=== PATIENT | female | born 1935 | race Two or more races ===

== ENCOUNTER 2017-07-27 15:05 | Inpatient (IN) | payer MEDICARE, OTHER ==
[2017-07-27] VITALS (24 sets, daily range): BP systolic 111–175; BP diastolic 56–95; PULSE 40–72; RESP 16–20; Ht 152.4 cm; Wt 71.8 kg
[~2017-07-27] VITALS: Ht 152.4 cm; Wt 71.8 kg
[2017-07-27] MEDS ORDERED: ZOLP5TAB PO (16:59)
[2017-07-27] MEDS ORDERED: CLOP75TA27 PO (16:59)
[2017-07-27] MEDS ORDERED: AMLO2.5T78 PO (16:59)
[2017-07-27] MEDS ORDERED: ATOR20TA38 PO (16:59)
[2017-07-27] MEDS ORDERED: VALS160T26 PO (16:59)
[2017-07-27] MEDS ORDERED: ENOX30DI8 SQ (16:59)
[2017-07-27] MEDS ORDERED: ACET-2047 PO (16:59)
[2017-07-27] MEDS ORDERED: ASPI81TA3 PO (16:59)
[2017-07-27] MEDS ORDERED: PANT40TA4 PO (16:59)
[2017-07-27] MEDS ORDERED: GABA300S PO (16:59)
[2017-07-27] MEDS ORDERED: SS SC (16:59)
[2017-07-27] MEDS ORDERED: CARV25TA79 PO (16:59)
[2017-07-27] MEDS ORDERED: HYDR-3672 PO (16:59)
[2017-07-27] MEDS ORDERED: VERAPAMIL 5 MG INJ ONE (19:04)
[2017-07-27] MEDS ORDERED: HEPARIN 1000 UNITS/ML 10 ML INJ ONE ×2 (19:04→19:05)
[2017-07-27] MEDS ORDERED: LIDOCAINE 1% (MDV) 20 ML INJ ONE (19:04)
[2017-07-27] MEDS ORDERED: SOD CHLORIDE 0.9% 1,500 ML ONE (19:05)
[2017-07-27] MEDS ORDERED: FENTAnyl 50 MCG/ML VIAL ONE (19:15)
[2017-07-27] MEDS ORDERED: MIDAZOLAM 1 MG/ML 2 ML INJ ONE (19:15)
[2017-07-27] MEDS ORDERED: IOHEXOL 350MG/ML 50 ML BTL ONE (20:20)
--- NOTE | 2017-07-27 20:42 | OPR ---
Date/Time of Note Date/Time of Note DATE: 07/27/17 TIME: 20:33 Operative Report Preoperative Diagnosis unstable angina Postoperative Diagnosis unstable angina Surgeon see signature line Drawing Box Tender none Anesthesia Type: moderate sedation Estimated Blood Loss: minimal Transfusion none Specimen none Grafts/Implants none Complications none Procedure Description Procedure Date: 07/27/2017 Propagation Worker/surgeon:Abhijeet Greer MD. Procedures Performed: 1)Left heart catheterization with selective left and right coronary angiography. Pre-operative Diagnosis:unstable angina Post-operative Diagnosis:unstable angina with three vessel CAD Indications:82 yo F with a h/o CAD, HTN, DM, who presented with chest pain and was found to have hypertensive emergency with SBP 200. Since she had already had 2 recent stress tests with differing reads (normal and abnormal), a cardiac CT was obtained which showed prox RCA disease and possible LAD and Cx disease. Cath was planned for evaluation Description of Procedure: After informed consent, the patient was brought to the cardiac catheterization lab. The procedure site was prepped and draped in usual manner. The patient was premedicated with versed 0.5 mg. 2mL lidocaine was injected into the right wrist. Next using the posterior wall technique, the 6/5 palestinian sheath was inserted into the right radial artery. Next using the JL3.0 and JR4, selective angiography of the left and right coronary arteries were obtained. The JR entered the LV and so hemodynamics were obtained. Left ventricle angiography was not obtained. Next all equipment was removed and hemostasis was obtained by TR band. Findings: Anatomy/Hemodynamics: Left main:large, ostial 20% LAD: very tortuous vessel with ostial 60%, mid 70-80% Diagonal:luminal irregularities Circumflex: very tortuous vessel with ostial 70-80% in some views though difficult due to vessel overlap, mid 40-50% Obtuse marginal:luminal irregularities RCA: proximal subtotal with some antegrade flow, some bridging collaterals, and left-right collaterals LV angiography:not done LV-Ao:no gradient LVEDP:20 mmHG Estimated blood loss<10 mL. Specimen: none Grafts/implants: none Complications: none Assessment: Unstable angina: three vessel coronary disease. 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
--- NOTE | 2017-07-27 20:42 | OPR ---
Date/Time of Note Date/Time of Note DATE: 07/27/17 TIME: 20:33 Operative Report Preoperative Diagnosis unstable angina Postoperative Diagnosis unstable angina Surgeon see signature line Beck Tender none Anesthesia Type: moderate sedation Estimated Blood Loss: minimal Transfusion none Specimen none Grafts/Implants none Complications none Procedure Description Procedure Date: 07/27/2017 Senior Java Developer/surgeon:Abhijeet Greer MD. Procedures Performed: 1)Left heart catheterization with selective left and right coronary angiography. Pre-operative Diagnosis:unstable angina Post-operative Diagnosis:unstable angina with three vessel CAD Indications:82 yo F with a h/o CAD, HTN, DM, who presented with chest pain and was found to have hypertensive emergency with SBP 200. Since she had already had 2 recent stress tests with differing reads (normal and abnormal), a cardiac CT was obtained which showed prox RCA disease and possible LAD and Cx disease. Cath was planned for evaluation Description of Procedure: After informed consent, the patient was brought to the cardiac catheterization lab. The procedure site was prepped and draped in usual manner. The patient was premedicated with versed 0.5 mg. 2mL lidocaine was injected into the right wrist. Next using the posterior wall technique, the 6/5 qatari sheath was inserted into the right radial artery. Next using the JL3.0 and JR4, selective angiography of the left and right coronary arteries were obtained. The JR entered the LV and so hemodynamics were obtained. Left ventricle angiography was not obtained. Next all equipment was removed and hemostasis was obtained by TR band. Findings: Anatomy/Hemodynamics: Left main:large, ostial 20% LAD: very tortuous vessel with ostial 60%, mid 70-80% Diagonal:luminal irregularities Circumflex: very tortuous vessel with ostial 70-80% in some views though difficult due to vessel overlap, mid 40-50% Obtuse marginal:luminal irregularities RCA: proximal subtotal with some antegrade flow, some bridging collaterals, and left-right collaterals LV angiography:not done LV-Ao:no gradient LVEDP:20 mmHG Estimated blood loss<10 mL. Specimen: none Grafts/implants: none Complications: none Assessment: Unstable angina: three vessel coronary disease. 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
--- NOTE | 2017-07-27 20:42 | OPR ---
Date/Time of Note Date/Time of Note DATE: 07/27/17 TIME: 20:33 Operative Report Preoperative Diagnosis unstable angina Postoperative Diagnosis unstable angina Surgeon see signature line Skein Winder none Anesthesia Type: moderate sedation Estimated Blood Loss: minimal Transfusion none Specimen none Grafts/Implants none Complications none Procedure Description Procedure Date: 07/27/2017 Metal Expediter/surgeon:Abhijeet Greer MD. Procedures Performed: 1)Left heart catheterization with selective left and right coronary angiography. Pre-operative Diagnosis:unstable angina Post-operative Diagnosis:unstable angina with three vessel CAD Indications:82 yo F with a h/o CAD, HTN, DM, who presented with chest pain and was found to have hypertensive emergency with SBP 200. Since she had already had 2 recent stress tests with differing reads (normal and abnormal), a cardiac CT was obtained which showed prox RCA disease and possible LAD and Cx disease. Cath was planned for evaluation Description of Procedure: After informed consent, the patient was brought to the cardiac catheterization lab. The procedure site was prepped and draped in usual manner. The patient was premedicated with versed 0.5 mg. 2mL lidocaine was injected into the right wrist. Next using the posterior wall technique, the 6/5 algerian sheath was inserted into the right radial artery. Next using the JL3.0 and JR4, selective angiography of the left and right coronary arteries were obtained. The JR entered the LV and so hemodynamics were obtained. Left ventricle angiography was not obtained. Next all equipment was removed and hemostasis was obtained by TR band. Findings: Anatomy/Hemodynamics: Left main:large, ostial 20% LAD: very tortuous vessel with ostial 60%, mid 70-80% Diagonal:luminal irregularities Circumflex: very tortuous vessel with ostial 70-80% in some views though difficult due to vessel overlap, mid 40-50% Obtuse marginal:luminal irregularities RCA: proximal subtotal with some antegrade flow, some bridging collaterals, and left-right collaterals LV angiography:not done LV-Ao:no gradient LVEDP:20 mmHG Estimated blood loss<10 mL. Specimen: none Grafts/implants: none Complications: none Assessment: Unstable angina: three vessel coronary disease. 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
--- NOTE | 2017-07-27 20:44 | CONS ---
Date/Time of Note Date/Time of Note DATE: 07/27/17 TIME: 20:42 Assessment/Plan Assessment/Plan Chief Complaint/Hosp Course Unstable angina: three vessel coronary disease. 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, CABG is the best option if she is a candidate DM HTN HL -admit to tele for CABG eval -if not a surgical candidate, can discuss high risk PCI -ASA, lipitor -metoprolol 25mg BID -imdur 30mg Problems: Consultation Date/Type/Reason Admit Date/Time Initial Consult Date 24 HR Interval Summary Free Text/Dictation S/p cath, See op note Exam/Review of Systems Vital Signs Vitals Vital Signs Date Time Temp Pulse Resp B/P Pulse Ox O2 Delivery O2 Flow Rate FiO2 07/27/17 15:22 99.0 66 16 166/78 97 Room Air Exam Constitutional: alert, oriented Psych: nl mood/affect, no complaints Head: atraumatic, normocephalic Eyes: nl conjunctiva Neck: supple, No jvd Respiratory: clear to auscultation, No crackles/rales Cardiovascular: regular rate and rhythm, systolic murmur (2/6 DENIS), No edema Gastrointestinal: non-tender, soft Neurological: nl mental status, nl speech Skin: No rash or lesions AKIKO HOSKINS Jul 27, 2017 20:44
--- NOTE | 2017-07-27 20:44 | CONS ---
Date/Time of Note Date/Time of Note DATE: 07/27/17 TIME: 20:42 Assessment/Plan Assessment/Plan Chief Complaint/Hosp Course Unstable angina: three vessel coronary disease. 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, CABG is the best option if she is a candidate DM HTN HL -admit to tele for CABG eval -if not a surgical candidate, can discuss high risk PCI -ASA, lipitor -metoprolol 25mg BID -imdur 30mg Problems: Consultation Date/Type/Reason Admit Date/Time Initial Consult Date 24 HR Interval Summary Free Text/Dictation S/p cath, See op note Exam/Review of Systems Vital Signs Vitals Vital Signs Date Time Temp Pulse Resp B/P Pulse Ox O2 Delivery O2 Flow Rate FiO2 07/27/17 15:22 99.0 66 16 166/78 97 Room Air Exam Constitutional: alert, oriented Psych: nl mood/affect, no complaints Head: atraumatic, normocephalic Eyes: nl conjunctiva Neck: supple, No jvd Respiratory: clear to auscultation, No crackles/rales Cardiovascular: regular rate and rhythm, systolic murmur (2/6 DENIS), No edema Gastrointestinal: non-tender, soft Neurological: nl mental status, nl speech Skin: No rash or lesions AKIKO HOSKINS Jul 27, 2017 20:44
--- NOTE | 2017-07-27 20:44 | CONS ---
Date/Time of Note Date/Time of Note DATE: 07/27/17 TIME: 20:42 Assessment/Plan Assessment/Plan Chief Complaint/Hosp Course Unstable angina: three vessel coronary disease. 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, CABG is the best option if she is a candidate DM HTN HL -admit to tele for CABG eval -if not a surgical candidate, can discuss high risk PCI -ASA, lipitor -metoprolol 25mg BID -imdur 30mg Problems: Consultation Date/Type/Reason Admit Date/Time Initial Consult Date 24 HR Interval Summary Free Text/Dictation S/p cath, See op note Exam/Review of Systems Vital Signs Vitals Vital Signs Date Time Temp Pulse Resp B/P Pulse Ox O2 Delivery O2 Flow Rate FiO2 07/27/17 15:22 99.0 66 16 166/78 97 Room Air Exam Constitutional: alert, oriented Psych: nl mood/affect, no complaints Head: atraumatic, normocephalic Eyes: nl conjunctiva Neck: supple, No jvd Respiratory: clear to auscultation, No crackles/rales Cardiovascular: regular rate and rhythm, systolic murmur (2/6 DENIS), No edema Gastrointestinal: non-tender, soft Neurological: nl mental status, nl speech Skin: No rash or lesions AKIKO HOSKINS Jul 27, 2017 20:44
[2017-07-27] MEDS ORDERED: HOLD all METFORMIN and METFORMIN CONTAINING medications for 48 hours post procedure. Chec XX SCH (21:00)
[2017-07-27] MEDS: hydrALAzine 20 MG INJ IV PRN (21:40)
[2017-07-27] MEDS: ATORVASTATIN 40 MG TAB PO SCH (23:27)
[2017-07-27] MEDS: METOPROLOL 25 MG TAB PO SCH (23:28)
[2017-07-28] VITALS (9 sets, daily range): BP systolic 121–152; BP diastolic 59–68; PULSE 58–76; RESP 19–21
[2017-07-28] MEDS ORDERED: ZOLPIDEM 5 MG TAB PO PRN (00:30)
--- NOTE | 2017-07-28 06:25 | PN ---
Date/Time of Note Date/Time of Note DATE: 07/28/17 TIME: 06:24 Assessment/Plan Lines/Catheters IV Catheter Type (from Nrs): Saline Lock Kelsey in Place (from Nrs): No Assessment/Plan Assessment/Plan 3V CAD, cath reviewed and has good targets for CABG. Will see and discuss with patient around noon. Exam/Review of Systems Vital Signs Vitals Vital Signs Date Time Temp Pulse Resp B/P Pulse Ox O2 Delivery O2 Flow Rate FiO2 07/28/17 04:02 98.0 67 21 121/59 95 07/27/17 22:48 Room Air Intake and Output 07/27/17 07/27/17 07/28/17 15:00 23:00 07:00 Intake Total 120 ml Balance 120 ml PO WILSON MD Jul 28, 2017 06:25
[2017-07-28] MEDS ORDERED: GLUCOSE GEL 15 GRAM TUBE BUCCAL PRN (08:30)
[2017-07-28] MEDS ORDERED: DEXTROSE 50% 50 ML SYRINGE IV PRN ×2 (08:30)
[2017-07-28] MEDS ORDERED: ACETAMINOPHEN 325 MG TAB PO PRN (08:30)
[2017-07-28] MEDS ORDERED: GLUCOSE GEL 15 GRAM TUBE PO PRN ×2 (08:30)
[2017-07-28] MEDS ORDERED: GLUCAGON 1 MG INJ IM PRN (08:30)
--- NOTE | 2017-07-28 08:50 | HP ---
DATE OF ADMISSION: 07/27/2017 CHIEF COMPLAINT: Coronary artery disease. HISTORY OF PRESENT ILLNESS: This is an 82-year-old female with a past medical history of hypertensi on, history of coronary artery disease, diabetes who presented to an outside hospital with hypertens aneesh emergency with systolic pressures greater than 200. The patient at the outside facility, was no christopher to have chest pain, shortness of breath. She was evaluated by cardiology. The patient was medi mami managed and stabilized and transferred to [facility] to undergo cardiac cath eterization. The left cardiac catheterization was performed and patient was found to have multivess el disease. No intervention occurred. The patient was admitted to telemetry for possible CABG eval uation. Upon my evaluation of the patient at this time, she is currently stable. Denies any hemoptysis, hem etemesis, hematochezia. No other acute events noted. PAST MEDICAL HISTORY: History of hypertension, diabetes, coronary artery disease. PAST SURGICAL HISTORY: None per patient. ALLERGIES: NO KNOWN DRUG ALLERGIES. SOCIAL HISTORY: Does not drink, smoke or do drugs. FAMILY HISTORY: Noncontributory. MEDICATIONS: The patient's medications have been reviewed and reconciled. REVIEW OF SYSTEMS: A 14-point review of systems was conducted. Pertinent positives listed in HPI, otherwise negative. PHYSICAL EXAMINATION: VITAL SIGNS: Blood pressure is 149/67, respirations 19, pulse 64, temperature 98.2. HEENT: Head is normocephalic. Pupils are reactive to light. NECK: Supple. HEART: Regular rate. LUNGS: Show diminished breath sounds at the base. ABDOMEN: Soft, nontender to palpation without rebound or guarding. EXTREMITIES: Negative for clubbing, cyanosis, no edema. DERMATOLOGIC: No rashes. MUSCULOSKELETAL: No joint effusions. NEUROLOGIC: No focal deficits. LABORATORY DATA: Patient's laboratory data is currently pending. ASSESSMENT AND PLAN: This is an 82-year-old female who presents with: 1. Coronary artery disease. The patient is status post cardiac catheterization with multivessel di sease. Plan is for the patient to be evaluated by cardiology and CT surgery for possible coronary a rtery bypass graft. We will continue medical management with aspirin and statin therapy. Follow up with Cardiology for recommendations. 2. Diabetes. Continue Accu-Cheks, insulin sliding scale. 3. Hypertension. Continue current blood pressure regimen. 4. Anemia. Monitor hemoglobin and hematocrit levels. 5. Gastrointestinal and deep venous thrombosis prophylaxis. We will continue PPI, sequential leg s queezers. Please note I spent up to 25 minutes face to face time with the patient and patient is FULL CODE. Dictated By: NATE LOVE/CARLITOS Conf#: [id number] DID#: [id number]
[2017-07-28] MEDS ORDERED: ISOSORBIDE MONONITRATE(SR)30 MG TAB PO SCH (09:00)
[2017-07-28] MEDS ORDERED: LISINOPRIL 10 MG TAB PO SCH (09:00)
[2017-07-28] MEDS ORDERED: PANTOPRAZOLE (EC) 40 MG TAB PO SCH (09:00)
[2017-07-28] MEDS ORDERED: ASPIRIN 81 MG TAB PO SCH (09:00)
[2017-07-28] MEDS ORDERED: ENOXAPARIN 30 MG/0.3 ML SYG SC SCH (09:00)
[2017-07-28] MEDS: METOPROLOL 25 MG TAB PO SCH ×2 (09:18→20:02)
[2017-07-28] MEDS: INSULIN ASPART [NOVOLOG] 3 ML PEN SC SCH ×3 (11:50→21:00)
--- NOTE | 2017-07-28 14:54 | CONS ---
Date/Time of Note Date/Time of Note DATE: 07/28/17 TIME: 14:47 Assessment/Plan Assessment/Plan Additional Assessment/Plan 82 year old female with hypertensive crisis and stable angina who has 3V CAD. I discussed options of medical management, high risk PCI vs CABG. Her STS risk of mortality is 2.2 and morbidity is 15%. At this time they wish to go home and think about there options. She can follow up with me if they decide to proceed with surgery. Thank you for the referral. Consultation Date/Type/Reason Admit Date/Time Date of Consultation: Jul 28, 2017 Type of Consultation: CT SURGER Reason for Consultation EVALUATE FOR CABG Referring Provider: AKIKO HOSKINS Hx of Present Illness 82 year old female admitted with hypertensive crisis and transferred here for angiogram which showed 3V CAD. She denies chest pain or SOB. We are asked to evaluate for CABG. Constitutional: No chills, No diaphoresis, No disoriented, No febrile, No improved, No no complaints, No other, No poor po, No requiring IVF, No requiring O2 Eyes: No discharge, No no complaints, No other, No pain, No redness, No visual change ENT: No bleeding, No congestion, No discharge, No dysphagia, No no complaints, No other, No pain, No sore throat Respiratory: No cough, No no complaints, No other, No pain, No pleuritic pain, No shortness of breath, No sputum, No wheezing Cardiovascular: No chest pain, No edema, No lightheadedness, No no complaints, No orthopenea, No other, No palpitations, No paroxysmal nocturnal dyspnea Gastrointestinal: No blood, No constipation, No decreased appetite, No diarrhea , No flatus, No nausea, No no complaints, No other, No pain, No passing stool, No vomiting Genitourinary: No bleeding, No discharge, No dysuria, No flank pain, No hematuria, No no complaints, No other Musculoskeletal: No back pain, No bone/joint pain, No neck pain, No no complaints, No other, No restricted range of motion, No swelling Skin: No bruising, No erythema, No laceration, No no complaints, No other, No pruritis, No rash, No skin lesions Neurologic: No confusion, No dizziness, No focal-weakness, No headache, No no complaints, No other, No seizure, No syncope Endocrine: No dry skin, No no complaints, No other, No polydypsia, No polyuria , No temp intolerance Lymphatic: No adenopathy, No lymphadema, No no complaints, No other, No tender nodes Psychological: nl mood/affect, no complaints, No anxiety, No confusion, No depression, No other, No suicidal Immunologic: No immunodeficiency, No no complaints, No other, No pruritis, No rhinitis, No urticaria Past Medical History Medical History: coronary artery disease, diabetes, high cholesterol, hypertension Past Surgical History Past Surgical Hx: no surgical history Family History Significant Family History: no pertinent family hx Social History Alcohol Use: none Smoking Status: Never smoker Drug Use: none Exam/Review of Systems Vital Signs Vitals Vital Signs Date Time Temp Pulse Resp B/P Pulse Ox O2 Delivery O2 Flow Rate FiO2 07/28/17 12:07 61 07/28/17 11:32 98.2 19 129/61 98 07/27/17 22:48 Room Air Intake and Output 07/27/17 07/27/17 07/28/17 15:00 23:00 07:00 Intake Total 120 ml 150 ml Balance 120 ml 150 ml Exam Constitutional: No alert, No distress, No frail, No non-verbal, No obese, No oriented, No other, No well developed Psych: No anxiety, No confusion, No depression, No nl mood/affect, No no complaints, No other, No suicidal Head: No atraumatic, No hematomas, No lacerations, No normocephalic, No other Eyes: No EOMI, No PERRL, No fundi, disc, No icteric, No nl conjunctiva, No nl lids, No nl sclera, No other ENMT: No intubated, No mucosa pink and moist, No nl external ears & nose, No nl lips & teeth, No nl nasal mucosa & septum, No other, No tympanic membranes Neck: No bruits, No jvd, No masses, No non-tender, No nuchal rigidity, No other , No supple, No thyromegaly Respiratory: No clear to auscultation, No congested cough, No crackles/rales, No diminished breath sounds, No intercostal retraction, No labored breathing, No normal air movement, No other, No respirations, No tactile fremitus, No wheezing Cardiovascular: No S3, No S4, No bruits, No diastolic murmur, No edema, No gallop, No irregular rhythm, No jugular venous distention (JVD), No murmurs/ extra sounds, No nl pulses, No other, No regular rate and rhythm, No rub, No systolic murmur Gastrointestinal: No ascites, No bowel sounds, No distended, No firm, No hepatomegaly, No mass, No nl liver, spleen, No non-tender, No other, No rebound or guarding, No soft, No splenomegaly, No surgical scars, No tender Genitourinary - Female: No CMT, No CVA tenderness, No nl adnexae, No nl external genitalia, No other, No uterus Musculoskeletal: No joint tenderness, No muscle tone, No muscle weakness, No nl extremities to inspection, No nl gait and stance, No other, No range of motion, No spine non-tender, No swelling Extremities: No calf tenderness, No clubbing, No cyanosis, No edema, No normal pulses, No other, No palpable cord, No pitting pedal edema, No tenderness Neurological: No FREIGHT FLAGMAN II-XII intact, No DTR's symmetric, No confused, No focal weakness, No lethargic, No nl mental status, No nl speech, No nl strength, No numbness, No other, No reflexes, No unresponsive Skin: No diaphoresis, No ecchymosis, No laceration, No nl turgor, No other, No puncture, No rash or lesions Lymph: No enlarged, No nl lymph nodes, No nontender, No other Results Result Diagram: 07/28/1715 07/28/17 0815 Results 24 hrs Laboratory Tests Test 07/27/17 20:35 07/28/17 08:15 07/28/17 13:15 Bedside Glucose 104 White Blood Count 6.2 Red Blood Count 4.55 Hemoglobin 12.9 Hematocrit 40.1 Mean Corpuscular Volume 88.1 Mean Corpuscular Hemoglobin 28.4 L Mean Corpuscular Hemoglobin Concent 32.2 Red Cell Distribution Width 12.9 Platelet Count 237 Mean Platelet Volume 10.5 H Neutrophils % 75.8 Lymphocytes % 13.7 L Monocytes % 8.1 Eosinophils % 1.6 Basophils % 0.3 Nucleated Red Blood Cells % 0.0 Neutrophils # 4.7 Lymphocytes # 0.9 Monocytes # 0.5 Eosinophils # 0.1 Basophils # 0.0 Nucleated Red Blood Cells # 0.0 Sodium Level 143 Potassium Level 3.9 Chloride Level 107 Carbon Dioxide Level 26 Anion Gap 14 Blood Urea Nitrogen 21 H Creatinine 0.93 Glucose Level 153 Calcium Level 8.8 Total Bilirubin 0.2 Direct Bilirubin 0.00 Indirect Bilirubin 0.2 Aspartate Amino Transf (AST/SGOT) 33 Alanine Aminotransferase (ALT/SGPT) 52 Alkaline Phosphatase 73 Total Protein 6.5 Albumin 3.6 Globulin 2.90 Albumin/Globulin Ratio 1.24 Urine Color YELLOW Urine Clarity SLIGHTLY CLOUDY A Urine pH 5.0 Urine Specific [place] 1.043 H Urine Ketones NEGATIVE Urine Nitrite NEGATIVE Urine Bilirubin NEGATIVE Urine Urobilinogen NEGATIVE Urine Leukocyte Esterase 3+ H Urine Microscopic RBC 11 H Urine Microscopic WBC 16 H Urine Squamous Epithelial Cells FEW Urine Bacteria FEW A Urine Mucus MODERATE Urine Hemoglobin NEGATIVE Urine Random Creatinine 147.23 Urine Random Sodium 49 Urine Glucose NEGATIVE Urine Total Protein 6.0 Medications Medications Current Medications Miscellaneous Information (* Miscellaneous Pharmacy Order) HOLD all METFORMIN ... ONCE XX ; Start 07/27/17 at 21:00; Stop 07/29/17 at 20:59 Aspirin (Aspirin) 81 mg DAILY PO Last administered on 07/28/17 09:21; Admin Dose 81 MG; Start 07/28/17 at 09:00 Atorvastatin Calcium (Lipitor) 40 mg HS PO Last administered on 07/27/17 23:27 ; Admin Dose 40 MG; Start 07/27/17 at 21:00 Metoprolol Tartrate (Lopressor) 25 mg BID PO Last administered on 07/28/17 09: 18; Admin Dose 25 MG; Start 07/27/17 at 21:00 Isosorbide Mononitrate (Imdur) 30 mg DAILY PO Last administered on 07/28/17 09 :19; Admin Dose 30 MG; Start 07/28/17 at 09:00 Lisinopril (Zestril) 10 mg DAILY PO Last administered on 07/28/17 09:19; Admin Dose 10 MG; Start 07/28/17 at 09:00 Hydralazine HCl (Apresoline) 10 mg Q4H PRN IV SBP >160 Last administered on 21:40; Admin Dose 10 MG; Start 07/27/17 at 21:00 Zolpidem Tartrate (Ambien) 5 mg QHS PRN PO INSOMNIA Last administered on 00:22; Admin Dose 5 MG; Start 07/28/17 at 00:30 Acetaminophen (Tylenol Tab) 650 mg Q6H PRN PO PAIN AND OR ELEVATED TEMP; Start 07/28/17 at 08:30 Enoxaparin Sodium (Lovenox) 30 mg DAILY SC Last administered on 07/28/17 09:20 ; Admin Dose 30 MG; Start 07/28/17 at 09:00 Pantoprazole (Protonix Tab) 40 mg DAILY PO Last administered on 07/28/17 09:18 ; Admin Dose 40 MG; Start 07/28/17 at 09:00 Diagnostic Test (Pha) (Accu-Chek) 1 ea 02 XX ; Start 07/29/17 at 02:00 Diagnostic Test (Pha) (Accu-Chek) 1 ea 02 XX ; Start 07/29/17 at 02:00 Miscellaneous Information 1 ea NOTE XX ; Start 07/28/17 at 08:30 Glucose (Glutose) 15 gm Q15M PRN PO DECREASED GLUCOSE; Start 07/28/17 at 08:30 Glucose (Glutose) 22.5 gm Q15M PRN PO DECREASED GLUCOSE; Start 07/28/17 at 08: 30 Dextrose (D50w Syringe) 25 ml Q15M PRN IV DECREASED GLUCOSE; Start 07/28/17 at 08:30 Dextrose (D50w Syringe) 50 ml Q15M PRN IV DECREASED GLUCOSE; Start 07/28/17 at 08:30 Glucagon (Glucagen) 1 mg Q15M PRN IM DECREASED GLUCOSE; Start 07/28/17 at 08:30 Glucose (Glutose) 15 gm Q15M PRN BUCCAL DECREASED GLUCOSE; Start 07/28/17 at 08 :30 PO WILSON MD Jul 28, 2017 14:54
--- NOTE | 2017-07-28 19:26 | CONS ---
Date/Time of Note Date/Time of Note DATE: 07/28/17 TIME: 19:21 Assessment/Plan Assessment/Plan Chief Complaint/Hosp Course Assessment: Unstable angina Three vessel coronary artery disease - ostial LAD, ostial LCx, subtotal RCA Hypertension Dyslipidemia Diabetes mellitus Recommendations: -patient and family undecided about CABG vs high-risk PCI -outpatient follow up with Dr. Greer in 1-2 weeks to discuss further -continue aspirin and statin -continue anti-hypertensive medications Problems: Consultation Date/Type/Reason Admit Date/Time Jul 27, 2017 at 20:33 Initial Consult Date 07/28/17 Type of Consultation: Cardiology 24 HR Interval Summary Free Text/Dictation No further chest pain. Detailed Summary Additional Comments 14 point review of systems without changes. Exam/Review of Systems Vital Signs Vitals Vital Signs Date Time Temp Pulse Resp B/P Pulse Ox O2 Delivery O2 Flow Rate FiO2 07/28/17 16:18 63 07/28/17 15:27 98.1 19 152/68 96 07/27/17 22:48 Room Air Intake and Output 07/27/17 07/27/17 07/28/17 15:00 23:00 07:00 Intake Total 120 ml 150 ml Balance 120 ml 150 ml Exam Constitutional: alert, well developed Psych: nl mood/affect, no complaints Head: atraumatic, normocephalic Eyes: nl conjunctiva, nl lids ENMT: nl external ears & nose, nl nasal mucosa & septum Neck: non-tender, supple, No jvd Respiratory: clear to auscultation Cardiovascular: regular rate and rhythm Gastrointestinal: non-tender, soft Musculoskeletal: nl extremities to inspection Extremities: No clubbing, No cyanosis, No edema Neurological: nl mental status, nl speech Skin: nl turgor Results Result Diagram: 07/28/1715 07/28/17 0815 Results 24 hrs Laboratory Tests Test 07/27/17 20:35 07/28/17 08:15 07/28/17 13:15 Bedside Glucose 104 White Blood Count 6.2 Red Blood Count 4.55 Hemoglobin 12.9 Hematocrit 40.1 Mean Corpuscular Volume 88.1 Mean Corpuscular Hemoglobin 28.4 L Mean Corpuscular Hemoglobin Concent 32.2 Red Cell Distribution Width 12.9 Platelet Count 237 Mean Platelet Volume 10.5 H Neutrophils % 75.8 Lymphocytes % 13.7 L Monocytes % 8.1 Eosinophils % 1.6 Basophils % 0.3 Nucleated Red Blood Cells % 0.0 Neutrophils # 4.7 Lymphocytes # 0.9 Monocytes # 0.5 Eosinophils # 0.1 Basophils # 0.0 Nucleated Red Blood Cells # 0.0 Sodium Level 143 Potassium Level 3.9 Chloride Level 107 Carbon Dioxide Level 26 Anion Gap 14 Blood Urea Nitrogen 21 H Creatinine 0.93 Glucose Level 153 Calcium Level 8.8 Total Bilirubin 0.2 Direct Bilirubin 0.00 Indirect Bilirubin 0.2 Aspartate Amino Transf (AST/SGOT) 33 Alanine Aminotransferase (ALT/SGPT) 52 Alkaline Phosphatase 73 Total Protein 6.5 Albumin 3.6 Globulin 2.90 Albumin/Globulin Ratio 1.24 Urine Color YELLOW Urine Clarity SLIGHTLY CLOUDY A Urine pH 5.0 Urine Specific [place] 1.043 H Urine Ketones NEGATIVE Urine Nitrite NEGATIVE Urine Bilirubin NEGATIVE Urine Urobilinogen NEGATIVE Urine Leukocyte Esterase 3+ H Urine Microscopic RBC 11 H Urine Microscopic WBC 16 H Urine Squamous Epithelial Cells FEW Urine Bacteria FEW A Urine Mucus MODERATE Urine Hemoglobin NEGATIVE Urine Random Creatinine 147.23 Urine Random Sodium 49 Urine Glucose NEGATIVE Urine Total Protein 6.0 Medications Medications Current Medications Miscellaneous Information (* Miscellaneous Pharmacy Order) HOLD all METFORMIN ... ONCE XX ; Start 07/27/17 at 21:00; Stop 07/29/17 at 20:59 Aspirin (Aspirin) 81 mg DAILY PO Last administered on 07/28/17 09:21; Admin Dose 81 MG; Start 07/28/17 at 09:00 Atorvastatin Calcium (Lipitor) 40 mg HS PO Last administered on 07/27/17 23:27 ; Admin Dose 40 MG; Start 07/27/17 at 21:00 Metoprolol Tartrate (Lopressor) 25 mg BID PO Last administered on 07/28/17 09: 18; Admin Dose 25 MG; Start 07/27/17 at 21:00 Isosorbide Mononitrate (Imdur) 30 mg DAILY PO Last administered on 07/28/17 09 :19; Admin Dose 30 MG; Start 07/28/17 at 09:00 Lisinopril (Zestril) 10 mg DAILY PO Last administered on 07/28/17 09:19; Admin Dose 10 MG; Start 07/28/17 at 09:00 Hydralazine HCl (Apresoline) 10 mg Q4H PRN IV SBP >160 Last administered on 21:40; Admin Dose 10 MG; Start 07/27/17 at 21:00 Zolpidem Tartrate (Ambien) 5 mg QHS PRN PO INSOMNIA Last administered on 00:22; Admin Dose 5 MG; Start 07/28/17 at 00:30 Acetaminophen (Tylenol Tab) 650 mg Q6H PRN PO PAIN AND OR ELEVATED TEMP; Start 07/28/17 at 08:30 Enoxaparin Sodium (Lovenox) 30 mg DAILY SC Last administered on 07/28/17 09:20 ; Admin Dose 30 MG; Start 07/28/17 at 09:00 Pantoprazole (Protonix Tab) 40 mg DAILY PO Last administered on 07/28/17 09:18 ; Admin Dose 40 MG; Start 07/28/17 at 09:00 Diagnostic Test (Pha) (Accu-Chek) 1 ea 02 XX ; Start 07/29/17 at 02:00 Diagnostic Test (Pha) (Accu-Chek) 1 ea 02 XX ; Start 07/29/17 at 02:00 Miscellaneous Information 1 ea NOTE XX ; Start 07/28/17 at 08:30 Glucose (Glutose) 15 gm Q15M PRN PO DECREASED GLUCOSE; Start 07/28/17 at 08:30 Glucose (Glutose) 22.5 gm Q15M PRN PO DECREASED GLUCOSE; Start 07/28/17 at 08: 30 Dextrose (D50w Syringe) 25 ml Q15M PRN IV DECREASED GLUCOSE; Start 07/28/17 at 08:30 Dextrose (D50w Syringe) 50 ml Q15M PRN IV DECREASED GLUCOSE; Start 07/28/17 at 08:30 Glucagon (Glucagen) 1 mg Q15M PRN IM DECREASED GLUCOSE; Start 07/28/17 at 08:30 Glucose (Glutose) 15 gm Q15M PRN BUCCAL DECREASED GLUCOSE; Start 07/28/17 at 08 :30 VIJAY DECKER MD Jul 28, 2017 19:26
[2017-07-28] MEDS: ATORVASTATIN 40 MG TAB PO SCH (20:02)
[2017-07-28] MEDS: hydrALAzine 20 MG INJ IV PRN (21:27)
[2017-07-29] MEDS ORDERED: ACCU-CHEK XX SCH ×2 (02:00)
== END 2017-07-28 22:00 | disposition home or self-care (01) | DRG 287 ==
LOC: SDS 15:05 → REC 20:33 → TEL 22:38
PROVIDERS: ADMIT Internal Medicine Interventional Cardiology; ATTEND Internal Medicine Interventional Cardiology
PROC: B2111ZZ Fluoroscopy of Multiple Coronary Arteries using Low Osmolar Contrast (ICD-10-PCS; 2017-07-27)
PROC: 4A023N7 Measurement of Cardiac Sampling and Pressure, Left Heart, Percutaneous Approach (ICD-10-PCS; principal; 2017-07-27 16:30)
DX: I25.10 Atherosclerotic heart disease of native coronary artery without angina pectoris (principal); I20.0 Unstable angina; E11.9 Type 2 diabetes mellitus without complications; I10 Essential (primary) hypertension; D64.9 Anemia, unspecified; E78.5 Hyperlipidemia, unspecified
CPT/HCPCS: 80053; 81001; 81003; 82043; 82962; 84155; 84300; 85025; 93458; C1887; J0360; J1644; J1650; J1815; J2250; J3010; J7040; Q9967